=== PATIENT | male | born 1960 | race African-American/Black ===

== ENCOUNTER 2025-03-24 16:39 | Emergency (ER) | payer SELFPAY ==
[~2025-03-24] VITALS: Ht 180.3 cm; Wt 73.0 kg
[2025-03-24 16:53] VITALS: O2SAT 100
[2025-03-24] MEDS: PROPOFOL 10MG/ML 100ML 100 ML IV PRN (16:53)
[2025-03-24 17:00] VITALS: PULSE 89; O2SAT 97
[2025-03-24 17:15] VITALS: BP 105/76; TEMP 36.7; O2SAT 100
[2025-03-24 19:21] VITALS: PULSE 98; RESP 22
== END 2025-03-24 17:30 | disposition short-term general hospital (02) ==
LOC: ER 16:39 → EDBD 16:39 → ER 17:30
DX: S11.95XA Open bite of unspecified part of neck, initial encounter (principal); S19.9XXA Unspecified injury of neck, initial encounter; S27.0XXA Traumatic pneumothorax, initial encounter; J96.00 Acute respiratory failure, unspecified whether with hypoxia or hypercapnia; Z79.899 Other long term (current) drug therapy; W54.0XXA Bitten by dog, initial encounter; Y93.89 Activity, other specified; Y92.89 Other specified places as the place of occurrence of the external cause; Y99.8 Other external cause status
CPT/HCPCS: 71045; 31500; 31720; 32551; 99291; 99292; J2704; Z7610; 94070